=== PATIENT | female | born 1965 | race Caucasian/White ===

== ENCOUNTER 2016-10-04 12:45 | Outpatient (CLI) | payer OTHER ==
--- NOTE | 2016-10-05 12:40 | DIAGNOSTIC IMAGING REPORT ---
REFERRING PHYSICIAN/PROVIDER: Tomás Sandoval MD CONSULTING TRAFFIC SUPERINTENDENT: Tomás Sandoval MD PROCEDURE: M-mode 2D echocardiography with spectral and color flow Doppler TECHNICAL QUALITY: Adequate INDICATION: BRADYCARDIA RHYTHM DURING PROCEDURE: Normal sinus rhythm INTERPRETATIONS: LEFT VENTRICLE: The left ventricular end-diastolic diameter is 4.3 cm which is within normal limits. There is normal left ventricular wall thickness. The LV systolic function is normal without any focal wall motion abnormalities. The LV ejection fraction is estimated to be 65-70%. The LV diastolic function is within normal limits. RIGHT VENTRICLE: The right ventricular systolic function and chamber size are both within normal limits. There is a RV pacemaker lead in the right sided heart chambers. ATRIA: There is normal biatrial chamber size. The interatrial septum is intact. In the right atrial chamber there appears to be a very small independent oscillated filamentous mass that is connected to either the right atrial or RV lead. Cannot exclude endocarditis or thrombus. Suggest transesophageal echocardiogram to further investigate. MITRAL VALVE: The mitral valve is normal and function in structure. There is no evidence of mitral regurgitation. AORTIC VALVE: The aortic valve is trileaflet. It opens well. There is no evidence of aortic regurgitation. TRICUSPID VALVE: The tricuspid valve is then and pliable. There is trace tricuspid regurgitation. The right ventricular systolic pressure is 22 mmHg assuming a right atrial pressure is 3 mmHg. PULMONIC VALVE: The pulmonic valve is normal in structure and function. There is no evidence of significant pulmonic regurgitation. GREAT VESSELS: The aortic root is normal size. The ascending aorta is mildly enlarged at 3.6 cm. The IVC is less than 2.1 cm in diameter and collapses more than 50% during inspiration. This is consistent with a low right atrial pressure of 3 mmHg. PERICARDIUM: There is no evidence of pericardial effusion. IMPRESSION: 1. Normal LV and RV systolic function. 2. Questionable mass on the right or RV lead in the right atrial chamber which could represent endocarditis or thrombus. Clinical correlation is recommended as well as the transesophageal echocardiogram. 3. Otherwise the rest of the echocardiogram is within normal limits.
== END 2016-10-04 23:00 ==
LOC: US SRH 12:45
DX: R00.1 Bradycardia, unspecified (principal); R93.1 Abnormal findings on diagnostic imaging of heart and coronary circulation